=== PATIENT | male | born 1980 | race Two or more races ===

== ENCOUNTER 2021-03-22 13:36 | Emergency (ER) | payer SELFPAY ==
[~2021-03-22] VITALS: Ht 182.9 cm; Wt 90.7 kg
[2021-03-22] MEDS ORDERED: KETOROLAC TROMETH 60MG/2ML VIAL IM ONE (14:00)
[2021-03-22 14:13] VITALS: BP 160/107
== END 2021-03-22 15:04 | disposition home or self-care (01) ==
LOC: ER 13:36
DX: S61.211A Laceration without foreign body of left index finger without damage to nail, initial encounter (principal); S61.213A Laceration without foreign body of left middle finger without damage to nail, initial encounter; W26.0XXA Contact with knife, initial encounter; Y93.89 Activity, other specified; Y92.89 Other specified places as the place of occurrence of the external cause; Y99.8 Other external cause status
CPT/HCPCS: 12002; 96372; 99283; J1885